=== PATIENT | male | born 1935 | race African-American/Black ===

== ENCOUNTER 2018-01-17 19:16 | Emergency (ER) | payer MEDICARE, OTHER ==
[~2018-01-17] VITALS: Ht 170.2 cm; Wt 82.0 kg
[~2018-01-17 19:16] MED LIST: ASPI-1159 PO; CLOP75TA16 PO; NIFE60TA35 PO; NITR0.4T49 SL; PRAN2 PO; ROSU10TA PO
[2018-01-17 20:55] LABS: BASOPHILS % 0.7 % (0.0-2.0); EOSINOPHILS % 0.6 % (0.0-5.0); HEMATOCRIT. 40.8 % (42.0-52.0); HEMOGLOBIN. 13.3 g/dL (14.0-18.0); LYMPHOCYTES % 19.7 % (20.0-50.0); MEAN CORPUSCULAR HEMOGLOBIN 27.6 pg (28.0-32.0); MEAN CORPUSCULAR VOLUME 84.3 fL (80.0-94.0); MEAN PLATELET VOLUME 8.7 fl (7.4-10.4); MONOCYTES % 5.5 % (2.0-8.0); NEUTROPHILS % 73.5 % (40.0-76.0); PLATELET 179 x1000/uL (130-400); RED BLOOD CELL COUNT 4.84 mill/uL (4.7-6.1); RED CELL DISTRIBUTION WIDTH 15.3 % (11.6-14.6)
[2018-01-17 21:00] LABS: CHLORIDE 103 mEq/L (98-107)
[2018-01-17 21:58] LABS: CLARITY URINE CLEAR (CLEAR); COLOR URINE YELLOW (YELLOW); KETONES URINE NEGATIVE (NEGATIVE); LEUKOCYTE ESTERASE URINE TRACE (NEGATIVE); NITRITE URINE NEGATIVE (NEGATIVE); OCCULT BLOOD URINE NEGATIVE (NEGATIVE); PROTEIN URINE NEGATIVE (NEGATIVE); SPECIFIC GRAVITY URINE 1.018 (1.005-1.030); UROBILINOGEN URINE 0.2 E.U./dL (0.2-1.0)
[2018-01-17 22:44] VITALS: BP 124/56
== END 2018-01-17 22:48 | disposition home or self-care (01) ==
LOC: ER 19:16
DX: N30.00 Acute cystitis without hematuria (principal); R20.2 Paresthesia of skin; F03.90 Unspecified dementia, unspecified severity, without behavioral disturbance, psychotic disturbance, mood disturbance, and anxiety; E78.00 Pure hypercholesterolemia, unspecified; I10 Essential (primary) hypertension; Z86.73 Personal history of transient ischemic attack (TIA), and cerebral infarction without residual deficits; Z79.82 Long term (current) use of aspirin; Z88.8 Allergy status to other drugs, medicaments and biological substances
CPT/HCPCS: 36415; 80053; 81003; 85025; 99284

== ENCOUNTER 2018-03-03 20:26 | Emergency (ER) | payer MEDICARE, OTHER ==
[~2018-03-03] VITALS: Ht 165.1 cm; Wt 73.0 kg
[2018-03-03] MEDS ORDERED: SODIUM CHLORIDE 0.9% 1,000 ML IV ONE (22:03)
[2018-03-03 22:27] LABS: BASOPHILS % 0.6 % (0.0-2.0); EOSINOPHILS % 1.1 % (0.0-5.0); HEMATOCRIT. 41.3 % (42.0-52.0); HEMOGLOBIN. 13.8 g/dL (14.0-18.0); LYMPHOCYTES % 22.1 % (20.0-50.0); MEAN CORPUSCULAR HEMOGLOBIN 28.2 pg (28.0-32.0); MEAN CORPUSCULAR VOLUME 84.4 fL (80.0-94.0); MEAN PLATELET VOLUME 8.6 fl (7.4-10.4); MONOCYTES % 7.3 % (2.0-8.0); NEUTROPHILS % 68.9 % (40.0-76.0); PLATELET 176 x1000/uL (130-400); RED CELL DISTRIBUTION WIDTH 14.8 % (11.6-14.6)
[2018-03-03 22:31] LABS: CHLORIDE 105 mEq/L (98-107)
[2018-03-03 22:32] LABS: INR 1.1; PROTHROMBIN TIME 10.6 sec (9.1-11.1)
[2018-03-03 22:46] LABS: CLARITY URINE CLEAR (CLEAR); COLOR URINE YELLOW (YELLOW); KETONES URINE NEGATIVE (NEGATIVE); LEUKOCYTE ESTERASE URINE NEGATIVE (NEGATIVE); NITRITE URINE NEGATIVE (NEGATIVE); OCCULT BLOOD URINE NEGATIVE (NEGATIVE); PH URINE 6.5 (4.5-8.0); PROTEIN URINE NEGATIVE (NEGATIVE); SPECIFIC GRAVITY URINE 1.035 (1.005-1.030); UROBILINOGEN URINE 0.2 E.U./dL (0.2-1.0)
[2018-03-04 00:30] VITALS: BP 135/65
== END 2018-03-04 00:35 | disposition home or self-care (01) ==
LOC: ER 20:26
DX: R55 Syncope and collapse (principal); F03.90 Unspecified dementia, unspecified severity, without behavioral disturbance, psychotic disturbance, mood disturbance, and anxiety; E78.00 Pure hypercholesterolemia, unspecified; I10 Essential (primary) hypertension; Z86.73 Personal history of transient ischemic attack (TIA), and cerebral infarction without residual deficits; Z79.82 Long term (current) use of aspirin; Z88.8 Allergy status to other drugs, medicaments and biological substances
CPT/HCPCS: 36415; 70450; 71045; 80053; 81003; 83880; 84484; 85025; 85610; 93005; 96360; 96361; 99284; J7030

== ENCOUNTER 2018-05-06 17:57 | Inpatient (IN) | payer MEDICARE, OTHER ==
[~2018-05-06] VITALS: Ht 167.6 cm; Wt 68.9 kg
[2018-05-06] MEDS ORDERED: SODIUM CHLORIDE 0.9% 1,000 ML IV ONE (18:38)
[2018-05-06] MEDS ORDERED: ACETAMINOPHEN 325MG TABLET PO ONE (18:45)
[2018-05-06 19:07] LABS: BASOPHILS % 0.6 % (0.0-2.0); EOSINOPHILS % 1.7 % (0.0-5.0); HEMATOCRIT. 42.5 % (42.0-52.0); LYMPHOCYTES % 26.8 % (20.0-50.0); MEAN CORPUSCULAR HEMOGLOBIN 28.1 pg (28.0-32.0); MEAN PLATELET VOLUME 8.1 fl (7.4-10.4); MONOCYTES % 7.6 % (2.0-8.0); NEUTROPHILS % 63.3 % (40.0-76.0); PLATELET 221 x1000/uL (130-400); RED BLOOD CELL COUNT 4.99 mill/uL (4.7-6.1); RED CELL DISTRIBUTION WIDTH 14.8 % (11.6-14.6)
[2018-05-06 19:10] LABS: CHLORIDE 107 mEq/L (98-107)
[2018-05-06 19:14] LABS: INR 1.1; PARTIAL THROMBOPLASTIN TIME 30.4 sec (23.4-31.0); PROTHROMBIN TIME 10.8 sec (9.1-11.1)
[2018-05-06 20:58] LABS: CLARITY URINE CLEAR (CLEAR); COLOR URINE YELLOW (YELLOW); KETONES URINE NEGATIVE (NEGATIVE); LEUKOCYTE ESTERASE URINE TRACE (NEGATIVE); NITRITE URINE NEGATIVE (NEGATIVE); OCCULT BLOOD URINE NEGATIVE (NEGATIVE); PH URINE 6.5 (4.5-8.0); PROTEIN URINE NEGATIVE (NEGATIVE); SPECIFIC GRAVITY URINE 1.013 (1.005-1.030)
[2018-05-06] MEDS ORDERED: MORPHINE SULFATE 2 MG/ML CPJ (NOT FOR IM USE) IV ONE (23:15)
[2018-05-06] MEDS ORDERED: MORPHINE SULFATE 4 MG/ML CPJ (NOT FOR IM USE) IV NR (23:30)
[2018-05-06] MEDS ORDERED: IOHEXOL-350 100 ML BOTTLE ONE (23:50)
[2018-05-07] MEDS ORDERED: ENOXAPARIN 80MG/0.8ML SYR SUBCUT ONE (01:30)
[2018-05-07 04:00] VITALS: BP 137/67
[2018-05-07 05:03] VITALS: BP 137/67
[2018-05-07] MEDS: SODIUM CHLORIDE 0.9% 1,000 ML IV SCH (07:20)
[2018-05-07 08:00] VITALS: BP 134/65
[2018-05-07] MEDS: ASPIRIN 81MG TABLET PO SCH ×2 (08:29→10:32)
[2018-05-07] MEDS ORDERED: ACETAMINOPHEN 650MG/20.3ML UDC PO PRN (09:45)
[2018-05-07] MEDS ORDERED: CLOPIDOGREL 75MG TABLET PO SCH (09:45)
[2018-05-07] MEDS: AMLODIPINE 5MG TABLET PO SCH (10:32)
[2018-05-07] MEDS: NITROGLYCERIN OINT 1GM/INCH UDPKT TD SCH ×2 (10:33→17:52)
[2018-05-07] MEDS: ENOXAPARIN 60MG/0.6ML SYR SUBCUT SCH ×2 (11:36→22:31)
[2018-05-07 12:00] VITALS: BP 129/70
[2018-05-07 16:00] VITALS: BP 119/58
[2018-05-07 20:00] VITALS: BP 108/59
[2018-05-08] VITALS: BP 114/49
[2018-05-08] MEDS: NITROGLYCERIN OINT 1GM/INCH UDPKT TD SCH ×3 (03:06→12:04)
[2018-05-08] MEDS: SODIUM CHLORIDE 0.9% 1,000 ML IV SCH (03:17)
[2018-05-08 07:07] LABS: BASOPHILS % 0.7 % (0.0-2.0); EOSINOPHILS % 3.2 % (0.0-5.0); HEMATOCRIT. 38.2 % (42.0-52.0); HEMOGLOBIN. 12.4 g/dL (14.0-18.0); LYMPHOCYTES % 31.4 % (20.0-50.0); MEAN CORPUSCULAR HEMOGLOBIN 27.6 pg (28.0-32.0); MEAN CORPUSCULAR VOLUME 85.3 fL (80.0-94.0); MEAN PLATELET VOLUME 8.1 fl (7.4-10.4); NEUTROPHILS % 55.7 % (40.0-76.0); PLATELET 202 x1000/uL (130-400); RED BLOOD CELL COUNT 4.48 mill/uL (4.7-6.1); RED CELL DISTRIBUTION WIDTH 14.8 % (11.6-14.6)
[2018-05-08 07:31] LABS: CHLORIDE 110 mEq/L (98-107)
[2018-05-08 08:04] VITALS: BP 145/92
[2018-05-08] MEDS: ENOXAPARIN 60MG/0.6ML SYR SUBCUT SCH (09:00)
[2018-05-08] MEDS ORDERED: CLOPIDOGREL 75MG TABLET PO SCH (09:00)
[2018-05-08] MEDS: ASPIRIN 81MG TABLET PO SCH (09:00)
[2018-05-08] MEDS: AMLODIPINE 5MG TABLET PO SCH (09:20)
[2018-05-08 11:55] VITALS: BP 138/66
[2018-05-08 14:11] VITALS: BP 132/82
== END 2018-05-08 15:24 | disposition home or self-care (01) | DRG 301 ==
LOC: ER 17:57 → 6WST 05-07 01:24 → ENRESERV 05-07 02:23
PROVIDERS: ADMIT Specialist; ATTEND Specialist
DX: E11.51 Type 2 diabetes mellitus with diabetic peripheral angiopathy without gangrene (principal); D63.8 Anemia in other chronic diseases classified elsewhere; E78.5 Hyperlipidemia, unspecified; E87.6 Hypokalemia; F03.90 Unspecified dementia, unspecified severity, without behavioral disturbance, psychotic disturbance, mood disturbance, and anxiety; I11.9 Hypertensive heart disease without heart failure; I25.10 Atherosclerotic heart disease of native coronary artery without angina pectoris; I99.8 Other disorder of circulatory system; N28.9 Disorder of kidney and ureter, unspecified; I70.201 Unspecified atherosclerosis of native arteries of extremities, right leg; K57.90 Diverticulosis of intestine, part unspecified, without perforation or abscess without bleeding; I25.2 Old myocardial infarction; Z98.61 Coronary angioplasty status; Z86.73 Personal history of transient ischemic attack (TIA), and cerebral infarction without residual deficits; Z87.891 Personal history of nicotine dependence
CPT/HCPCS: 36415; 71045; 72191; 73706; 80048; 83036; 83735; 83880; 84484; 93005; 93923; 93970; 96361; 96372; 96374; 99285; J1650; J2270; J7030; J7040; Q9967

== ENCOUNTER 2018-05-29 10:39 | Day surgery (SDC) | payer MEDICARE, OTHER ==
[~2018-05-29] VITALS: Ht 167.6 cm; Wt 72.6 kg
[2018-05-29] MEDS ORDERED: LIDOCAINE HCL 1% 20ML VIAL (Pyxis) INJ ONE (11:46)
[2018-05-29] MEDS ORDERED: IODIXANOL 320MG/ML 100 ML BOTTLE IV ONE (11:46)
[2018-05-29] MEDS ORDERED: COR3 PO (12:06)
[2018-05-29] MEDS ORDERED: MEMA5TAB15 PO (12:06)
[2018-05-29] MEDS ORDERED: ALEN70TA3 PO (12:06)
[2018-05-29] MEDS ORDERED: CHOL20004 PO (12:06)
[2018-05-29] MEDS ORDERED: LOSA1TAB34 PO (12:06)
[2018-05-29] MEDS ORDERED: MIDAZOLAM HCL 2 MG/2 ML VIAL ONE (12:10)
[2018-05-29] MEDS ORDERED: FENTANYL CITRATE/PF 50MCG/ML 2ML VIAL ONE (12:11)
[2018-05-29] MEDS ORDERED: ONDANSETRON HCL 4MG/2ML INJ IV PRN (13:00)
[2018-05-29] MEDS ORDERED: ACETAMINOPHEN 325MG TABLET PO PRN (13:00)
[2018-05-29] MEDS ORDERED: ATROPINE SULFATE 1MG/10ML SYR IV PRN (13:00)
== END 2018-05-29 18:00 | disposition home or self-care (01) ==
LOC: CCL 10:39
PROVIDERS: ATTEND Specialist
DX: I70.212 Atherosclerosis of native arteries of extremities with intermittent claudication, left leg (principal); E11.51 Type 2 diabetes mellitus with diabetic peripheral angiopathy without gangrene; I25.10 Atherosclerotic heart disease of native coronary artery without angina pectoris; E78.5 Hyperlipidemia, unspecified; I25.5 Ischemic cardiomyopathy; Z95.5 Presence of coronary angioplasty implant and graft; Z87.891 Personal history of nicotine dependence; I11.0 Hypertensive heart disease with heart failure; I50.20 Unspecified systolic (congestive) heart failure; E87.6 Hypokalemia; D63.8 Anemia in other chronic diseases classified elsewhere; F03.90 Unspecified dementia, unspecified severity, without behavioral disturbance, psychotic disturbance, mood disturbance, and anxiety; I50.22 Chronic systolic (congestive) heart failure
CPT/HCPCS: 36246; 75710; 99152; 99153; C1725; C1760; C1769; C1893; J1644; J2250; J3010; J3490; Q9967; G0500

== ENCOUNTER 2018-07-09 06:55 | Inpatient (IN) | payer MEDICARE, OTHER ==
[~2018-07-09] VITALS: Ht 170.2 cm; Wt 73.5 kg
[2018-07-09] VITALS (11 sets, daily range): BP systolic 129–174; BP diastolic 73–87
[~2018-07-09 06:55] MED LIST changes: +ALEN70TA3 PO; +CHOL20004 PO; +COR3 PO; +LOSA1TAB34 PO; +MEMA5TAB15 PO
[2018-07-09 09:16] LABS: HEMATOCRIT 35.8 % (42.0-52.0); HEMOGLOBIN 11.7 g/dL (14.0-18.0); MEAN CORPUSCULAR VOLUME 85.7 fL (80.0-94.0); PLATELET 143 x1000/uL (130-400); RED BLOOD CELL COUNT 4.17 mill/uL (4.7-6.1); RED CELL DISTRIBUTION WIDTH 15.1 % (11.6-14.6)
[2018-07-09 09:22] LABS: CHLORIDE 107 mEq/L (98-107)
[2018-07-09] MEDS ORDERED: LIDOCAINE HCL 1% 20ML VIAL (Pyxis) INJ ONE (10:06)
[2018-07-09] MEDS ORDERED: IODIXANOL 320MG/ML 100 ML BOTTLE IV ONE (10:06)
[2018-07-09] MEDS ORDERED: IOHEXOL-300 100 ML BOTTLE ONE (10:06)
[2018-07-09] MEDS ORDERED: MIDAZOLAM HCL 2 MG/2 ML VIAL ONE (10:44)
[2018-07-09] MEDS ORDERED: FENTANYL CITRATE/PF 50MCG/ML 2ML VIAL ONE (10:45)
[2018-07-09] MEDS ORDERED: HEPARIN SODIUM 1,000 UNIT/1ML VIAL IV ONE (11:00)
[2018-07-09] MEDS ORDERED: DIPHENHYDRAMINE 50MG/ML VIAL ONE (11:03)
[2018-07-09] MEDS ORDERED: ASPIRIN 325MG TABLET ONE (11:30)
[2018-07-09] MEDS ORDERED: CLOPIDOGREL 75MG TABLET ONE (11:30)
[2018-07-09] MEDS ORDERED: ACETAMINOPHEN 325MG TABLET PO PRN (11:45)
[2018-07-09] MEDS ORDERED: ATROPINE SULFATE 1MG/10ML SYR IV PRN (11:45)
[2018-07-09] MEDS ORDERED: ONDANSETRON HCL 4MG/2ML INJ IV PRN (11:45)
[2018-07-09] MEDS ORDERED: ENALAPRIL 1.25MG/ML VIAL 1ML IV PRN (17:15)
[2018-07-09] MEDS: NIFEDIPINE XL 60MG TAB PO SCH (18:00)
[2018-07-09] MEDS: LOSARTAN POTASSIUM 50 MG TABLET PO SCH (18:00)
[2018-07-10] VITALS (7 sets, daily range): BP systolic 115–142; BP diastolic 65–79
[2018-07-10 06:37] LABS: BASOPHILS % 0.8 % (0.0-2.0); EOSINOPHILS % 4.7 % (0.0-5.0); HEMATOCRIT. 40.2 % (42.0-52.0); HEMOGLOBIN. 13.1 g/dL (14.0-18.0); LYMPHOCYTES % 30.6 % (20.0-50.0); MEAN CORPUSCULAR HEMOGLOBIN 27.9 pg (28.0-32.0); MEAN CORPUSCULAR VOLUME 85.6 fL (80.0-94.0); MEAN PLATELET VOLUME 8.7 fl (7.4-10.4); MONOCYTES % 11.8 % (2.0-8.0); NEUTROPHILS % 52.1 % (40.0-76.0); PLATELET 142 x1000/uL (130-400); RED BLOOD CELL COUNT 4.69 mill/uL (4.7-6.1); RED CELL DISTRIBUTION WIDTH 14.9 % (11.6-14.6)
[2018-07-10 06:43] LABS: CHLORIDE 105 mEq/L (98-107)
[2018-07-10] MEDS: NIFEDIPINE XL 60MG TAB PO SCH (08:24)
[2018-07-10] MEDS: LOSARTAN POTASSIUM 50 MG TABLET PO SCH (08:24)
[2018-07-10] MEDS ORDERED: CLOPIDOGREL 75MG TABLET PO SCH (09:00)
[2018-07-10] MEDS ORDERED: ASPIRIN 325MG TABLET PO SCH (09:00)
== END 2018-07-10 12:10 | disposition home health service (06) | DRG 253 ==
LOC: CCL 06:55 → 3WST 06:56
PROVIDERS: ADMIT Specialist; ATTEND Specialist
PROC: 047U3ZZ Dilation of Left Peroneal Artery, Percutaneous Approach (ICD-10-PCS; principal; 2018-07-09)
PROC: B41GYZZ Fluoroscopy of Left Lower Extremity Arteries using Other Contrast (ICD-10-PCS; 2018-07-09)
DX: I70.212 Atherosclerosis of native arteries of extremities with intermittent claudication, left leg (principal); I42.9 Cardiomyopathy, unspecified; I50.22 Chronic systolic (congestive) heart failure; E11.51 Type 2 diabetes mellitus with diabetic peripheral angiopathy without gangrene; I25.10 Atherosclerotic heart disease of native coronary artery without angina pectoris; K57.90 Diverticulosis of intestine, part unspecified, without perforation or abscess without bleeding; I11.0 Hypertensive heart disease with heart failure; F02.80 Dementia in other diseases classified elsewhere, unspecified severity, without behavioral disturbance, psychotic disturbance, mood disturbance, and anxiety; E78.5 Hyperlipidemia, unspecified; G30.9 Alzheimer's disease, unspecified; Z95.5 Presence of coronary angioplasty implant and graft; Z87.891 Personal history of nicotine dependence; Z88.8 Allergy status to other drugs, medicaments and biological substances; Z86.73 Personal history of transient ischemic attack (TIA), and cerebral infarction without residual deficits
CPT/HCPCS: 36415; 37228; 75710; 80048; 82962; 85027; 85347; C1725; C1760; C1769; C1887; C1893; C1894; J1200; J1644; J2250; J3010; J3490; Q9967

== ENCOUNTER → 2019-11-03 | Outpatient (CLI) | payer MEDICARE, OTHER ==
[~2019-11-03] MED LIST changes: -ASPI-1159 PO; +ASPI-1497 PO; -CLOP75TA16 PO; +CLOP75TA4 PO; +CRES10 PO; -MEMA5TAB15 PO; +MEMA5TAB42 PO; -ROSU10TA PO
== END | disposition home or self-care (01) ==
LOC: LAB 09:31
PROVIDERS: ATTEND Specialist
DX: R05 Cough (principal); Z20.828 Contact with and (suspected) exposure to other viral communicable diseases
CPT/HCPCS: C9803; U0003

== ENCOUNTER 2019-11-05 08:07 | Day surgery (SDC) | payer MEDICARE, OTHER ==
[~2019-11-05] VITALS: Ht 170.2 cm; Wt 81.6 kg
[2019-11-05] MEDS ORDERED: MIDAZOLAM HCL 2 MG/2 ML VIAL ONE (09:00)
[2019-11-05] MEDS ORDERED: FENTANYL CITRATE/PF 50MCG/ML 2ML VIAL ONE (09:00)
[2019-11-05] MEDS ORDERED: LIDOCAINE HCL 1% 20ML VIAL (Pyxis) INJ ONE (09:01)
[2019-11-05] MEDS ORDERED: IODIXANOL 320MG/ML 100 ML BOTTLE IV ONE (09:01)
[2019-11-05] MEDS ORDERED: ACETAMINOPHEN 325MG TABLET PO PRN (10:15)
[2019-11-05] MEDS ORDERED: ATROPINE SULFATE 1MG/10ML SYR IV PRN (10:15)
[2019-11-05] MEDS ORDERED: ONDANSETRON HCL 4MG/2ML INJ IV PRN (10:15)
[2019-11-05] MEDS ORDERED: NITROGLYCERIN 0.4MG TABLET SL SL PRN (13:00)
== END 2019-11-05 16:30 | disposition home or self-care (01) ==
LOC: CCL 08:07
PROVIDERS: ATTEND Specialist
DX: I70.235 Atherosclerosis of native arteries of right leg with ulceration of other part of foot (principal); R00.1 Bradycardia, unspecified; G30.9 Alzheimer's disease, unspecified; F02.80 Dementia in other diseases classified elsewhere, unspecified severity, without behavioral disturbance, psychotic disturbance, mood disturbance, and anxiety; E78.5 Hyperlipidemia, unspecified; I65.29 Occlusion and stenosis of unspecified carotid artery; M54.40 Lumbago with sciatica, unspecified side; M81.0 Age-related osteoporosis without current pathological fracture; I25.2 Old myocardial infarction; I50.9 Heart failure, unspecified; I10 Essential (primary) hypertension; E11.9 Type 2 diabetes mellitus without complications; Z79.899 Other long term (current) drug therapy; Z88.8 Allergy status to other drugs, medicaments and biological substances; Z87.891 Personal history of nicotine dependence; Z95.5 Presence of coronary angioplasty implant and graft; Z98.890 Other specified postprocedural states; Z79.82 Long term (current) use of aspirin
CPT/HCPCS: 36247; 75710; 82962; 93005; C1760; C1769; C1893; J1644; J2250; J3010; J3490; Q9967; 36246

== ENCOUNTER 2019-12-18 04:45 | Emergency (ER) | payer MEDICARE, OTHER ==
[~2019-12-18] VITALS: Ht 172.7 cm; Wt 77.0 kg
[2019-12-18] MEDS ORDERED: IBUPROFEN 400MG TABLET PO ONE (06:00)
[2019-12-18] MEDS ORDERED: ACETAMINOPHEN 650MG/20.3ML UDC PO ONE (06:00)
[2019-12-18 07:30] VITALS: BP 128/78
== END 2019-12-18 09:23 | disposition home or self-care (01) ==
LOC: ER 04:45
DX: S40.011A Contusion of right shoulder, initial encounter (principal); S70.11XA Contusion of right thigh, initial encounter; E11.9 Type 2 diabetes mellitus without complications; I10 Essential (primary) hypertension; Z88.8 Allergy status to other drugs, medicaments and biological substances; Z79.899 Other long term (current) drug therapy; X58.XXXA Exposure to other specified factors, initial encounter; Y93.89 Activity, other specified; Y92.89 Other specified places as the place of occurrence of the external cause; Y99.8 Other external cause status
CPT/HCPCS: 99283

== ENCOUNTER 2019-12-29 15:22 | Inpatient (IN) | payer MEDICARE, OTHER ==
[~2019-12-29] VITALS: Ht 165.1 cm; Wt 72.6 kg
[2019-12-29 18:33] LABS: EOSINOPHILS % 1.2 % (0.0-5.0); HEMATOCRIT. 38.4 % (42.0-52.0); HEMOGLOBIN. 12.5 g/dL (14.0-18.0); LYMPHOCYTES % 22.1 % (20.0-50.0); MEAN CORPUSCULAR HEMOGLOBIN 28.7 pg (28.0-32.0); MEAN CORPUSCULAR VOLUME 88.3 fL (80.0-94.0); MEAN PLATELET VOLUME 7.3 fl (7.4-10.4); MONOCYTES % 8.7 % (2.0-8.0); PLATELET 317 x1000/uL (130-400); RED BLOOD CELL COUNT 4.34 mill/uL (4.7-6.1); RED CELL DISTRIBUTION WIDTH 14.8 % (11.6-14.6)
[2019-12-29 18:43] LABS: CHLORIDE 106 mEq/L (98-107)
[2019-12-29 18:48] LABS: INR 1.1; PROTHROMBIN TIME 11.3 sec (9.6-11.0)
[2019-12-29 19:30] LABS: CLARITY URINE CLEAR (CLEAR); COLOR URINE YELLOW (YELLOW); KETONES URINE NEGATIVE (NEGATIVE); LEUKOCYTE ESTERASE URINE NEGATIVE (NEGATIVE); NITRITE URINE NEGATIVE (NEGATIVE); OCCULT BLOOD URINE TRACE (NEGATIVE); PROTEIN URINE NEGATIVE (NEGATIVE); SPECIFIC GRAVITY URINE 1.011 (1.005-1.030)
[2019-12-29] MEDS ORDERED: SODIUM CHLORIDE 0.9% 500 ML IV ONE (19:58)
[2019-12-29] MEDS ORDERED: ACETAMINOPHEN 325MG TABLET PO ONE (20:00)
[2019-12-29] MEDS ORDERED: GUAIFENESIN 200MG/10ML SUGAR FREE UDC PO PRN (23:45)
[2019-12-29] MEDS ORDERED: MAGNESIUM/ALUMINUM HYDROXIDE/SIMETHICONE 30ML UDC PO PRN (23:45)
[2019-12-29] MEDS ORDERED: ONDANSETRON HCL 4MG/2ML INJ IV PRN (23:45)
[2019-12-29] MEDS ORDERED: ZOLPIDEM TARTRATE 5MG TABLET PO PRN (23:45)
[2019-12-29] MEDS ORDERED: ACETAMINOPHEN 325MG TABLET PO PRN ×2 (23:45)
[2019-12-29] MEDS ORDERED: DEXTROSE 50% WATER 50ML SYRINGE IV PRN (23:45)
[2019-12-29 23:50] VITALS: BP 158/88
[2019-12-30] MEDS: BLOOD SUGAR DIAGNOSTIC STRIP TEST SCH ×4 (07:03→20:26)
[2019-12-30] MEDS: INSULIN LISPRO 100 UNITS/ML SUBCUT SCH ×4 (07:49→20:38)
[2019-12-30 08:00] VITALS: BP 168/83
[2019-12-30] MEDS: FAMOTIDINE 20MG TABLET PO SCH (08:35)
[2019-12-30] MEDS ORDERED: FAMOTIDINE 20MG TABLET PO SCH (09:00)
[2019-12-30] MEDS: CLONIDINE 0.1MG TABLET PO PRN (09:53)
[2019-12-30] MEDS ORDERED: CARVEDILOL 3.125 MG TABLET PO NR (10:30)
[2019-12-30 12:00] VITALS: BP_SYST 142; BP_DIAS 66; BP_DIAS 67
[2019-12-30] MEDS: LOSARTAN POTASSIUM 50 MG TABLET PO SCH (13:02)
[2019-12-30] MEDS: MEMANTINE HCL 5MG TABLET PO SCH (13:03)
[2019-12-30] MEDS ORDERED: ENOXAPARIN 40MG/0.4ML SYR SUBCUT SCH (14:00)
[2019-12-30 16:00] VITALS: BP 139/69
[2019-12-30 20:00] VITALS: BP 140/77
[2019-12-30] MEDS: CARVEDILOL 3.125 MG TABLET PO SCH (20:26)
[2019-12-30] MEDS: SODIUM CHLORIDE 0.9% INJ 3ML FLUSH IVF SCH (20:26)
[2019-12-30] MEDS ORDERED: ATORVASTATIN CALCIUM 10MG TABLET PO SCH (21:00)
[2019-12-30] MEDS: HYDROCODONE/ACETAMINOPHEN 5/325MG TABLET PO PRN (23:26)
[2019-12-31] VITALS: BP 163/69
[2019-12-31 04:00] VITALS: BP 162/77
[2019-12-31 06:44] LABS: CHLORIDE 107 mEq/L (98-107)
[2019-12-31 06:48] LABS: BASOPHILS % 0.7 % (0.0-2.0); EOSINOPHILS % 1.9 % (0.0-5.0); HEMOGLOBIN. 10.9 g/dL (14.0-18.0); LYMPHOCYTES % 27.2 % (20.0-50.0); MEAN CORPUSCULAR HEMOGLOBIN 28.8 pg (28.0-32.0); MEAN CORPUSCULAR VOLUME 87.4 fL (80.0-94.0); MEAN PLATELET VOLUME 7.8 fl (7.4-10.4); MONOCYTES % 7.8 % (2.0-8.0); NEUTROPHILS % 62.4 % (40.0-76.0); PLATELET 260 x1000/uL (130-400); RED BLOOD CELL COUNT 3.78 mill/uL (4.7-6.1); RED CELL DISTRIBUTION WIDTH 14.5 % (11.6-14.6)
[2019-12-31] MEDS: INSULIN LISPRO 100 UNITS/ML SUBCUT SCH ×4 (07:50→22:52)
[2019-12-31 08:00] VITALS: BP 167/77
[2019-12-31] MEDS: BLOOD SUGAR DIAGNOSTIC STRIP TEST SCH ×4 (08:08→21:00)
[2019-12-31] MEDS: MEMANTINE HCL 5MG TABLET PO SCH (08:52)
[2019-12-31] MEDS: FAMOTIDINE 20MG TABLET PO SCH (08:52)
[2019-12-31] MEDS: EZETIMIBE 10MG TABLET PO SCH (08:52)
[2019-12-31] MEDS: CARVEDILOL 3.125 MG TABLET PO SCH ×2 (08:52→22:31)
[2019-12-31] MEDS: LOSARTAN POTASSIUM 50 MG TABLET PO SCH (08:53)
[2019-12-31] MEDS ORDERED: HYDROCODONE/ACETAMINOPHEN 5/325MG TABLET PO SCH (10:30)
[2019-12-31] MEDS: HYDROCODONE/ACETAMINOPHEN 5/325MG TABLET PO PRN (10:37)
[2019-12-31] MEDS: MULTIVITAMINS,THER W-MINERALS TABLET PO SCH (10:45)
[2019-12-31 12:00] VITALS: BP 158/83
[2019-12-31] MEDS: SODIUM CHLORIDE 0.9% INJ 3ML FLUSH IVF SCH ×2 (13:58→22:32)
[2019-12-31 16:00] VITALS: BP 165/81
[2019-12-31] MEDS ORDERED: BACITRACIN 50,000 UNITS/VIAL ONE (16:02)
[2019-12-31] MEDS ORDERED: BUPIVACAINE HCL/EPINEPHRINE/PF 0.5%/0.0005 10ML ONE (16:02)
[2019-12-31] MEDS ORDERED: VANCOMYCIN HCL 1 GM/VIAL ONE (16:02)
[2019-12-31] MEDS ORDERED: ONDANSETRON HCL 4MG/2ML INJ IV PRN (19:15)
[2019-12-31] MEDS ORDERED: HYDROMORPHONE HCL/PF 2MG/ML CPJ IV PRN (19:15)
[2019-12-31] MEDS ORDERED: MEPERIDINE HCL/PF 25MG/ML CPJ IV PRN (19:15)
[2019-12-31] MEDS ORDERED: LABETALOL 5MG/ML SYR 20 MG/4 ML SYRINGE IV PRN (19:15)
[2019-12-31] MEDS ORDERED: CEFAZOLIN SODIUM 1000MG/VIAL ONE (19:20)
[2019-12-31 20:00] VITALS: BP 161/80
[2019-12-31] MEDS ORDERED: CEFAZOLIN SODIUM 1000MG/VIAL IV SCH (22:00)
[2020-01-01] VITALS: BP 130/84
[2020-01-01 04:00] VITALS: BP 155/75
[2020-01-01] MEDS: CEFAZOLIN 1000MG PREMIX 50 ML IV SCH ×3 (05:45→18:00)
[2020-01-01] MEDS: HYDROCODONE/ACETAMINOPHEN 5/325MG TABLET PO PRN ×2 (05:46→09:56)
[2020-01-01] MEDS: SODIUM CHLORIDE 0.9% INJ 3ML FLUSH IVF SCH ×3 (05:52→22:51)
[2020-01-01] MEDS: BLOOD SUGAR DIAGNOSTIC STRIP TEST SCH ×4 (05:52→21:00)
[2020-01-01 08:00] VITALS: BP 159/90
[2020-01-01] MEDS ORDERED: CARVEDILOL 3.125 MG TABLET PO SCH (09:00)
[2020-01-01] MEDS: MEMANTINE HCL 5MG TABLET PO SCH (09:08)
[2020-01-01] MEDS: FAMOTIDINE 20MG TABLET PO SCH (09:08)
[2020-01-01] MEDS: LOSARTAN POTASSIUM 50 MG TABLET PO SCH (09:08)
[2020-01-01] MEDS: EZETIMIBE 10MG TABLET PO SCH (09:08)
[2020-01-01 09:10] LABS: BASOPHILS % 0.3 % (0.0-2.0); EOSINOPHILS % 0.2 % (0.0-5.0); HEMATOCRIT. 34.1 % (42.0-52.0); HEMOGLOBIN. 11.3 g/dL (14.0-18.0); MEAN CORPUSCULAR HEMOGLOBIN 29.3 pg (28.0-32.0); MEAN CORPUSCULAR VOLUME 88.3 fL (80.0-94.0); MONOCYTES % 9.8 % (2.0-8.0); NEUTROPHILS % 77.7 % (40.0-76.0); PLATELET 252 x1000/uL (130-400); RED BLOOD CELL COUNT 3.86 mill/uL (4.7-6.1)
[2020-01-01] MEDS: INSULIN LISPRO 100 UNITS/ML SUBCUT SCH ×4 (09:10→22:49)
[2020-01-01 09:16] LABS: CHLORIDE 104 mEq/L (98-107)
[2020-01-01 12:00] VITALS: BP 146/69
[2020-01-01] MEDS: MULTIVITAMINS,THER W-MINERALS TABLET PO SCH (12:17)
[2020-01-01 16:00] VITALS: BP 157/76
[2020-01-01] MEDS: DIPHENHYDRAMINE 50MG/ML VIAL IV PRN (17:50)
[2020-01-01] MEDS ORDERED: LORAZEPAM 2MG/ML CPJ IM PRN (19:15)
[2020-01-01] MEDS: LORAZEPAM 2MG/ML CPJ IV PRN (19:30)
[2020-01-01 20:00] VITALS: BP 154/70
[2020-01-01] MEDS: QUETIAPINE FUMARATE 50MG TABLET PO SCH (21:55)
[2020-01-01] MEDS: CARVEDILOL 6.25 MG TABLET PO SCH (21:56)
[2020-01-02] VITALS: BP 133/73
[2020-01-02] MEDS: SODIUM CHLORIDE 0.9% INJ 3ML FLUSH IVF SCH ×3 (02:27→22:10)
[2020-01-02] MEDS: LORAZEPAM 2MG/ML CPJ IV PRN (03:57)
[2020-01-02 04:00] VITALS: BP 143/106
[2020-01-02 05:54] LABS: CHLORIDE 103 mEq/L (98-107)
[2020-01-02 06:15] LABS: HEMOGLOBIN. 11.4 g/dL (14.0-18.0); MEAN CORPUSCULAR HEMOGLOBIN 29.5 pg (28.0-32.0); MEAN CORPUSCULAR VOLUME 88.3 fL (80.0-94.0); MEAN PLATELET VOLUME 7.8 fl (7.4-10.4); PLATELET 220 x1000/uL (130-400); RED BLOOD CELL COUNT 3.85 mill/uL (4.7-6.1); RED CELL DISTRIBUTION WIDTH 15.3 % (11.6-14.6)
[2020-01-02] MEDS: BLOOD SUGAR DIAGNOSTIC STRIP TEST SCH ×4 (06:41→21:02)
[2020-01-02 08:00] VITALS: BP 144/78
[2020-01-02] MEDS: INSULIN LISPRO 100 UNITS/ML SUBCUT SCH ×4 (08:51→21:07)
[2020-01-02] MEDS: MULTIVITAMINS,THER W-MINERALS TABLET PO SCH (08:53)
[2020-01-02] MEDS: FAMOTIDINE 20MG TABLET PO SCH (08:53)
[2020-01-02] MEDS: CARVEDILOL 6.25 MG TABLET PO SCH ×2 (08:53→20:57)
[2020-01-02] MEDS: LOSARTAN POTASSIUM 50 MG TABLET PO SCH (08:54)
[2020-01-02] MEDS: MEMANTINE HCL 5MG TABLET PO SCH (08:54)
[2020-01-02] MEDS: EZETIMIBE 10MG TABLET PO SCH (08:54)
[2020-01-02 12:00] VITALS: BP 147/88
[2020-01-02 13:36] LABS: PLATELET ESTIMATE NORMAL
[2020-01-02] MEDS: AMLODIPINE 2.5MG TABLET PO SCH ×2 (14:55→17:09)
[2020-01-02 16:00] VITALS: BP 155/82
[2020-01-02 20:00] VITALS: BP 170/88
[2020-01-02] MEDS: CLONIDINE 0.1MG TABLET PO PRN (20:57)
[2020-01-02] MEDS: QUETIAPINE FUMARATE 50MG TABLET PO SCH (20:57)
[2020-01-03] VITALS (7 sets, daily range): BP systolic 125–156; BP diastolic 59–78
[2020-01-03 06:31] LABS: BASOPHILS % 0.5 % (0.0-2.0); EOSINOPHILS % 0.9 % (0.0-5.0); HEMATOCRIT. 34.7 % (42.0-52.0); HEMOGLOBIN. 11.4 g/dL (14.0-18.0); LYMPHOCYTES % 16.6 % (20.0-50.0); MEAN CORPUSCULAR HEMOGLOBIN 29.2 pg (28.0-32.0); MEAN CORPUSCULAR VOLUME 88.6 fL (80.0-94.0); MEAN PLATELET VOLUME 7.7 fl (7.4-10.4); MONOCYTES % 13.6 % (2.0-8.0); NEUTROPHILS % 68.4 % (40.0-76.0); PLATELET 223 x1000/uL (130-400); RED BLOOD CELL COUNT 3.91 mill/uL (4.7-6.1); RED CELL DISTRIBUTION WIDTH 15.2 % (11.6-14.6)
[2020-01-03 06:33] LABS: CHLORIDE 104 mEq/L (98-107)
[2020-01-03] MEDS: SODIUM CHLORIDE 0.9% INJ 3ML FLUSH IVF SCH ×3 (06:56→22:02)
[2020-01-03] MEDS: BLOOD SUGAR DIAGNOSTIC STRIP TEST SCH ×4 (07:20→20:46)
[2020-01-03] MEDS: INSULIN LISPRO 100 UNITS/ML SUBCUT SCH ×4 (07:36→20:45)
[2020-01-03] MEDS: LOSARTAN POTASSIUM 50 MG TABLET PO SCH (09:01)
[2020-01-03] MEDS: CARVEDILOL 6.25 MG TABLET PO SCH ×2 (09:01→20:43)
[2020-01-03] MEDS: MEMANTINE HCL 5MG TABLET PO SCH (09:01)
[2020-01-03] MEDS: EZETIMIBE 10MG TABLET PO SCH (09:02)
[2020-01-03] MEDS: AMLODIPINE 2.5MG TABLET PO SCH ×2 (09:02→17:04)
[2020-01-03] MEDS: FAMOTIDINE 20MG TABLET PO SCH (09:02)
[2020-01-03] MEDS: MULTIVITAMINS,THER W-MINERALS TABLET PO SCH (09:02)
[2020-01-03] MEDS: DOCUSATE SODIUM 100MG CAPSULE PO SCH ×2 (11:48→17:03)
[2020-01-03] MEDS: HYDROCODONE/ACETAMINOPHEN 5/325MG TABLET PO PRN (17:26)
[2020-01-03] MEDS: POLYETHYLENE GLYCOL 3350 (17GM) 1 DOSE PACK PO SCH (20:43)
[2020-01-03] MEDS: QUETIAPINE FUMARATE 50MG TABLET PO SCH (20:43)
[2020-01-04] VITALS: BP 116/56
[2020-01-04] MEDS: LORAZEPAM 2MG/ML CPJ IV PRN ×2 (00:14→21:43)
[2020-01-04] MEDS: DIPHENHYDRAMINE 50MG/ML VIAL IV PRN (02:27)
[2020-01-04 04:00] VITALS: BP 153/79
[2020-01-04] MEDS: SODIUM CHLORIDE 0.9% INJ 3ML FLUSH IVF SCH ×3 (06:27→22:00)
[2020-01-04] MEDS: BLOOD SUGAR DIAGNOSTIC STRIP TEST SCH ×4 (06:32→21:00)
[2020-01-04 08:00] VITALS: BP 145/70
[2020-01-04] MEDS: DOCUSATE SODIUM 100MG CAPSULE PO SCH ×2 (08:46→17:04)
[2020-01-04] MEDS: LOSARTAN POTASSIUM 50 MG TABLET PO SCH (08:47)
[2020-01-04] MEDS: CARVEDILOL 6.25 MG TABLET PO SCH ×2 (08:47→21:42)
[2020-01-04] MEDS: MEMANTINE HCL 5MG TABLET PO SCH (08:47)
[2020-01-04] MEDS: MULTIVITAMINS,THER W-MINERALS TABLET PO SCH (08:48)
[2020-01-04] MEDS: FAMOTIDINE 20MG TABLET PO SCH (08:48)
[2020-01-04] MEDS: EZETIMIBE 10MG TABLET PO SCH (08:48)
[2020-01-04] MEDS: AMLODIPINE 2.5MG TABLET PO SCH ×2 (08:48→17:04)
[2020-01-04] MEDS: INSULIN LISPRO 100 UNITS/ML SUBCUT SCH ×4 (08:53→21:00)
[2020-01-04 12:00] VITALS: BP 126/56
[2020-01-04 17:24] LABS: T4 FREE 1.71 ng/dL (0.76-1.46)
[2020-01-04 17:46] LABS: FOLIC ACID (FOLATE) SERUM > 20.00 ng/mL (>5.38); VITAMIN B12 SERUM > 2000.0 pg/mL (211-911)
[2020-01-04 20:00] VITALS: BP 146/61
[2020-01-04] MEDS: POLYETHYLENE GLYCOL 3350 (17GM) 1 DOSE PACK PO SCH (21:00)
[2020-01-04] MEDS: QUETIAPINE FUMARATE 50MG TABLET PO SCH (21:42)
== END 2020-01-04 22:23 | disposition home health service (06) | DRG 492 ==
LOC: ER 15:22 → EDBEDREQTM 18:46 → EDBEDREQ 20:19 → ENRESERV 21:13 → 6EST 23:37
PROVIDERS: ADMIT Internal Medicine; ATTEND Internal Medicine
PROC: 0QSH04Z Reposition Left Tibia with Internal Fixation Device, Open Approach (ICD-10-PCS; principal; 2020-01-03)
DX: S82.142A Displaced bicondylar fracture of left tibia, initial encounter for closed fracture (principal); G92 Toxic encephalopathy; I50.22 Chronic systolic (congestive) heart failure; I42.9 Cardiomyopathy, unspecified; I47.2 Ventricular tachycardia; I11.0 Hypertensive heart disease with heart failure; E78.00 Pure hypercholesterolemia, unspecified; E78.5 Hyperlipidemia, unspecified; F02.80 Dementia in other diseases classified elsewhere, unspecified severity, without behavioral disturbance, psychotic disturbance, mood disturbance, and anxiety; D63.8 Anemia in other chronic diseases classified elsewhere; I25.10 Atherosclerotic heart disease of native coronary artery without angina pectoris; E11.51 Type 2 diabetes mellitus with diabetic peripheral angiopathy without gangrene; S09.90XA Unspecified injury of head, initial encounter; G30.9 Alzheimer's disease, unspecified; R26.2 Difficulty in walking, not elsewhere classified; X58.XXXA Exposure to other specified factors, initial encounter; K57.90 Diverticulosis of intestine, part unspecified, without perforation or abscess without bleeding; I70.1 Atherosclerosis of renal artery; Z20.828 Contact with and (suspected) exposure to other viral communicable diseases; R53.81 Other malaise; L50.9 Urticaria, unspecified; K30 Functional dyspepsia; W18.39XA Other fall on same level, initial encounter; Z95.5 Presence of coronary angioplasty implant and graft; I25.2 Old myocardial infarction; Z79.82 Long term (current) use of aspirin; Z79.899 Other long term (current) drug therapy; Y08.89XA Assault by other specified means, initial encounter; Y93.89 Activity, other specified; Y92.89 Other specified places as the place of occurrence of the external cause; Y99.8 Other external cause status; Z88.8 Allergy status to other drugs, medicaments and biological substances; Z86.73 Personal history of transient ischemic attack (TIA), and cerebral infarction without residual deficits; Z79.84 Long term (current) use of oral hypoglycemic drugs
CPT/HCPCS: 36415; 71045; 73552; 73562; 73590; 73630; 73700; 76000; 80048; 80053; 81003; 82140; 82607; 82746; 82962; 83036; 84439; 84443; 84481; 84484; 85025; 87426; 92523; 92610; 93005; 93306; 97162; 97166; 97530; 99285; J0171; J0690; J1170; J1200; J1650; J1815; J2060; J2175; J2405; J3370; J3490; J7040; L1830

== ENCOUNTER → 2021-04-20 | Day surgery (SDC) | payer MEDICARE, OTHER ==
[~2021-04-20] MED LIST changes: +ACETAMINOPHEN 325MG TABLET PO PRN; +ALEN10TA25 MT; +ALEN70SO3 PO; -ALEN70TA3 PO; +AMOX1TAB16 MT; +ATROPINE SULFATE 1MG/10ML SYR IV PRN; +CICL30GE5 TP; +CLOP-31 PO; -CLOP75TA4 PO; +COLL30OI TP; -COR3 PO; +CYAN-50 MT; +DONE10TA36 PO; +DONE10TA43 PO; +DOXY100C5 PO; +FENTANYL CITRATE/PF 50MCG/ML 2ML VIAL ONE; +FLUO15CR2 TP; +FOLI0.8T9 PO; +IODIXANOL 320MG/ML 100 ML BOTTLE IV ONE; +LIDOCAINE HCL 1% 20ML VIAL (Pyxis) INJ ONE; +LOSA50TA41 PO; +MIDAZOLAM HCL 2 MG/2 ML VIAL ONE; +MOME30SO TP; -NIFE60TA35 PO; +NIFE90TA2 PO; +NITR1OIN TD; +ONDANSETRON HCL 4MG/2ML INJ IV PRN; +SOTA80TA PO; +T3 PO
== END | disposition home or self-care (01) ==
LOC: CCL 06:47
PROVIDERS: ATTEND Specialist
DX: I70.221 Atherosclerosis of native arteries of extremities with rest pain, right leg (principal); Z79.82 Long term (current) use of aspirin; Z79.899 Other long term (current) drug therapy; Z87.891 Personal history of nicotine dependence; Z98.890 Other specified postprocedural states; Z88.8 Allergy status to other drugs, medicaments and biological substances
CPT/HCPCS: 36246; 75710; 82962; 93005; 99152; 99153; C1760; C1769; C1893; J1644; J2250; J3010; J3490; Q9967

== ENCOUNTER 2021-04-26 07:44 | Day surgery (SDC) | payer MEDICARE, OTHER ==
[~2021-04-26] VITALS: Ht 170.2 cm; Wt 71.0 kg
[~2021-04-26 07:44] MED LIST changes: -ACETAMINOPHEN 325MG TABLET PO PRN; -ALEN70SO3 PO; -ATROPINE SULFATE 1MG/10ML SYR IV PRN; -DONE10TA36 PO; -FENTANYL CITRATE/PF 50MCG/ML 2ML VIAL ONE; -IODIXANOL 320MG/ML 100 ML BOTTLE IV ONE; -LIDOCAINE HCL 1% 20ML VIAL (Pyxis) INJ ONE; -LOSA1TAB34 PO; -MIDAZOLAM HCL 2 MG/2 ML VIAL ONE; -ONDANSETRON HCL 4MG/2ML INJ IV PRN
[2021-04-26] MEDS ORDERED: DEXTROSE 50% WATER 50ML SYRINGE IV SCH (08:30)
[2021-04-26] MEDS ORDERED: LIDOCAINE HCL 1% 20ML VIAL (Pyxis) INJ ONE ×2 (09:34→10:30)
[2021-04-26] MEDS ORDERED: VANCOMYCIN HCL 1 GM/VIAL ONE (09:35)
[2021-04-26] MEDS ORDERED: POLYMYXIN B SULFATE 500000 UNITS/VIAL ONE (09:35)
[2021-04-26] MEDS ORDERED: BUPIVACAINE HCL/PF 0.5% (5MG/ML) 10ML ONE (09:35)
[2021-04-26] MEDS ORDERED: BACITRACIN 15GM TUBE TOP ONE (09:35)
[2021-04-26] MEDS ORDERED: CEFAZOLIN SODIUM 1000MG/VIAL ONE (10:30)
[2021-04-26] MEDS ORDERED: FENTANYL CITRATE/PF 50MCG/ML 2ML VIAL ONE (10:30)
[2021-04-26] MEDS ORDERED: DEXAMETHASONE 4MG/ML 1ML VIAL ONE (10:30)
[2021-04-26] MEDS ORDERED: PROPOFOL 200MG/20ML VIAL IV ONE (10:30)
[2021-04-26] MEDS ORDERED: LIDOCAINE HCL 2% JELLY 5ML ONE (10:31)
[2021-04-26] MEDS ORDERED: ONDANSETRON HCL 4MG/2ML INJ ONE (10:31)
[2021-04-26] MEDS ORDERED: FENTANYL CITRATE/PF 50MCG/ML 2ML VIAL IV PRN (11:00)
[2021-04-26] MEDS ORDERED: EPHEDRINE SULFATE 50MG/ML VIAL ONE (11:09)
== END 2021-04-26 14:25 | disposition home or self-care (01) ==
LOC: OR 07:44 → EDSTATUS 10:00 → OR 14:25
PROVIDERS: ATTEND Podiatrist Foot & Ankle Surgery
DX: M86.8X7 Other osteomyelitis, ankle and foot (principal); L97.519 Non-pressure chronic ulcer of other part of right foot with unspecified severity; I11.0 Hypertensive heart disease with heart failure; I50.9 Heart failure, unspecified; E11.9 Type 2 diabetes mellitus without complications; I73.9 Peripheral vascular disease, unspecified; I25.10 Atherosclerotic heart disease of native coronary artery without angina pectoris; Z79.899 Other long term (current) drug therapy; Z98.890 Other specified postprocedural states; Z20.822 Contact with and (suspected) exposure to COVID-19
CPT/HCPCS: 28005; 73620; 82962; 87070; 87075; 87077; 87186; 87205; 87426; 88311; J0690; J1100; J2405; J2704; J3010; J3370; J3490

== ENCOUNTER → 2024-06-05 | Day surgery (SDC) | payer MEDICARE, OTHER ==
[~2024-06-05] VITALS: Ht 162.6 cm; Wt 64.0 kg
[~2024-06-05] MED LIST changes: -CICL30GE5 TP; -COLL30OI TP; -CYAN-50 MT; +DEXTROSE 50% WATER 50ML SYRINGE IV ONE; -DOXY100C5 PO; +FENTANYL CITRATE/PF 50MCG/ML 2ML VIAL ONE; -FLUO15CR2 TP; -FOLI0.8T9 PO; +HEPARIN 1000 UNITS/ML 10ML ONE; +HYDRALAZINE 20MG/ML VIAL ONE; +IODIXANOL 320MG/ML 100 ML BOTTLE IV ONE; +LIDOCAINE HCL 1% 20ML VIAL ONE; +MEMA5TAB16 PO; -MEMA5TAB42 PO; +MIDAZOLAM HCL 2 MG/2 ML VIAL ONE; -MOME30SO TP; -T3 PO; +[UNRECOGNIZED DRUG - CODE] PO
[2024-06-05] MEDS: DEXTROSE 50% WATER 50ML SYRINGE IV NR (08:25)
== END | disposition home or self-care (01) ==
LOC: CCL 06:56
PROVIDERS: ATTEND Specialist
DX: E11.51 Type 2 diabetes mellitus with diabetic peripheral angiopathy without gangrene (principal); I70.211 Atherosclerosis of native arteries of extremities with intermittent claudication, right leg; E11.621 Type 2 diabetes mellitus with foot ulcer; I10 Essential (primary) hypertension; E78.5 Hyperlipidemia, unspecified; I25.10 Atherosclerotic heart disease of native coronary artery without angina pectoris; I25.2 Old myocardial infarction; M17.12 Unilateral primary osteoarthritis, left knee; G30.9 Alzheimer's disease, unspecified; F02.80 Dementia in other diseases classified elsewhere, unspecified severity, without behavioral disturbance, psychotic disturbance, mood disturbance, and anxiety; F17.200 Nicotine dependence, unspecified, uncomplicated; Z79.82 Long term (current) use of aspirin; Z79.899 Other long term (current) drug therapy; Z98.890 Other specified postprocedural states; Z88.8 Allergy status to other drugs, medicaments and biological substances; Z82.49 Family history of ischemic heart disease and other diseases of the circulatory system; Z79.02 Long term (current) use of antithrombotics/antiplatelets; Z86.73 Personal history of transient ischemic attack (TIA), and cerebral infarction without residual deficits; Z86.79 Personal history of other diseases of the circulatory system; Z95.5 Presence of coronary angioplasty implant and graft
CPT/HCPCS: 75710; 82962; 36245; C1893; C1725 ×2; C1769 ×2; J3010; Q9967; J3490 ×2; J1644 ×2; J0360; J2250; 36246; A4606